=== PATIENT | male | born 1950 | race Caucasian/White ===

== ENCOUNTER → 2017-02-27 | Outpatient (CLI) | payer OTHER, MEDICARE | LOC: SBRMNEURO 23:00 | PROVIDERS: ATTEND Physician Assistant Medical | DX: G47.33 Obstructive sleep apnea (adult) (pediatric) (principal); G47.52 REM sleep behavior disorder ==

== ENCOUNTER 2017-09-29 08:21 | Inpatient (IN) | payer OTHER, MEDICARE ==
--- NOTE | 2017-09-29 07:03 | PDHPUP ---
History & Physical Update H&P update statement: This history and physical update is based on an assessment of the patient which was completed after admission or registration (within 24 hours), but prior to the surgery/procedure. H&P update: H&P reviewed & patient examined, no change in patient's condition since H&P completed
[~2017-09-29 08:21] MED LIST: ROPIVACAINE 0.2% 80 MG, EPINEPHrine 0.2 MG, KETOROLAC TROMETHAMINE 30 MG in SYRINGE 0 ML IU ONE; TRANEXAMIC ACID 3,000 MG in NS (SYRINGE) 50 ML IRR ONE; TRANEXAMIC ACID 3,000 MG/50 ML BAG IRR ONE
[2017-09-29] MEDS ORDERED: LIDOCAINE 1% 2 ML INJ ID PRN (08:40)
[2017-09-29] MEDS ORDERED: FAMOTIDINE 20 MG TAB PO ONE (08:40)
[2017-09-29] MEDS ORDERED: DEXAMETHASONE 4 MG/ML VIAL IVP ONE (08:40)
[2017-09-29] MEDS ORDERED: VANCOMYCIN PHARMACY TO DOSE MISC ONE (08:40)
[2017-09-29] MEDS ORDERED: ACETAMINOPHEN 325 MG TAB PO ONE (08:40)
[2017-09-29] MEDS ORDERED: LR 1,000 ML IV ONE (08:40)
[2017-09-29] MEDS ORDERED: VANCOMYCIN 1.5 GM in NS 250 ML IV ONE (09:30)
--- NOTE | 2017-09-29 09:38 | PDANEPAE ---
ANE History of Present Illness here for L MARTIN ANE Past Medical History - Cardiovascular History Hx Hypertension: No Hx Arrhythmias: Yes Hx Chest Pain: No Hx Coronary Artery / Peripheral Vascular Disease: No Hx CHF / Valvular Disease: No Hx Palpitations: No Cardiovascular History Comment: A-Fib. LAE - Pulmonary History Hx COPD: No Hx Asthma/Reactive Airway Disease: No Hx Recent Upper Respiratory Infection: No Hx Oxygen in Use at Home: No Hx Sleep Apnea: Yes Sleep Apnea Screening Result - Last Documented: Positive Pulmonary History Comment: [facility]LEY uses C-PAP - Neurologic History Hx Cerebrovascular Accident: No Hx Seizures: No Hx Dementia: No - Endocrine History Hx Diabetes: No - Renal History Hx Renal Disorders: Yes Renal History Comment: prostate ca - Liver History Hx Hepatic Disorders: No - Neurological & Psychiatric Hx Hx Neurological and Psychiatric Disorders: Yes Neurological / Psychiatric History Comment: depression - Cancer History Hx Cancer: Yes Cancer History Comment: prostate ca - GI History Hx Gastrointestinal Disorders: No - Other Health History Other Health History: Gout. osteo-arthritis left hip - Chronic Pain History Chronic Pain: No - Surgical History Prior Surgeries: prostetectomy 2011. rotator cuff repair 2017 ANE Review of Systems Review of Systems: - Exercise capacity METS (RN): 4 METS ANE Patient History - Allergies Allergies/Adverse Reactions: Penicillins Allergy (Verified 09/04/17 11:35) Swelling/neck,face,throat - Home Medications Home Medications: Allopurinol [Allopurinol 300 MG (RX)] 300 mg PO DAILY 09/04/17 [Last Taken 09/22] Apixaban [Eliquis] 5 mg PO BID 09/04/17 [Last Taken 09/25/17] Ascorbic Acid [Vitamin C 500 mg (*)] 1,000 mg PO BID 09/04/17 [Last Taken ] Cholecalciferol Vit D3 [Vitamin D3 (*)] 2,000 units PO DAILY 09/04/17 [Last Taken 09/22/17] FLUoxetine [Prozac 20 MG (*)] 60 mg PO DAILY 09/04/17 [Last Taken 09/29/17 06:30 ] Fluticasone Nasal [Flonase Nasal Vernalis (RX)] 1 sprays NASAL DAILY PRN 09/04/17 [ Last Taken 07/31/17] [place]-3 Fatty Acids [Fish Oil 1000 mg (*)] 1,000 mg PO BID 09/04/17 [Last Taken 09/22/17] Rosuvastatin Calcium [Crestor 20mg (*)] 20 mg PO DAILY 09/04/17 [Last Taken 08/17] Tadalafil [Cialis] 2.5 mg PO DAILY 09/04/17 [Last Taken 09/08/17] Colchicine PRN 09/29/17 [Last Taken 08/14/17] - NPO status NPO Since - Liquids (Date): 09/28/17 NPO Since - Liquids (Time): 21:30 NPO Since - Solids (Date): 09/28/17 NPO Since - Solids (Time): 21:30 - Anes Hx Anes Hx: no prior problems - Smoking Hx Smoking Status: Never smoked - Alcohol Use Alcohol Use: Rarely - Family Anes Hx Family Anes Hx: none Family Hx Anesthesia Complications: none ANE Labs/Vital Signs - Vital Signs Blood Pressure: 147/86 Heart Rate: 65 Respiratory Rate: 16 O2 Sat (%): 92 Height: 177.8 cm Weight: 102.058 kg ANE Physical Exam - Airway Neck exam: FROM Mallampati Score: Class 2 Mouth exam: normal dental/mouth exam - Pulmonary Pulmonary: no respiratory distress, clear to auscultation - Cardiovascular Cardiovascular: regular rate and rhythym, no murmur, rub, or gallop - ASA Status ASA Status: III ANE Anesthesia Plan Anesthesia Plan: GA with mask, spinal Total IV Anesthesia: Yes
[2017-09-29] MEDS ORDERED: MIDAZOLAM 2 MG/2 ML VIAL IVP ONE (09:42)
[2017-09-29] MEDS ORDERED: PROPOFOL/EMULSION 500 MG/50 ML BOTTLE IV ONE ×2 (09:46→10:45)
[2017-09-29] MEDS ORDERED: MAGNESIUM HYDROXIDE 30 ML UDCUP PO PRN (11:16)
[2017-09-29] MEDS ORDERED: DIPHENOXYLATE/ATROPINE LOMOTIL 1 TAB PO PRN (11:16)
[2017-09-29] MEDS ORDERED: METOCLOPRAMIDE 10 MG/2 ML VIAL IVP PRN (11:16)
[2017-09-29] MEDS ORDERED: ONDANSETRON 4 MG/2 ML VIAL IVP PRN ×2 (11:16→11:23)
[2017-09-29] MEDS ORDERED: PROMETHAZINE HCL 25 MG SUPPR PR PRN (11:16)
[2017-09-29] MEDS ORDERED: NON-FORMULARY NEW DRUG (Fluticasone Nasal [Flonase Nasal Spray] 1 SPRAYS) NASAL PRN (11:16)
[2017-09-29] MEDS ORDERED: LACTULOSE 20 GM/30 ML UDCUP PO PRN (11:16)
[2017-09-29] MEDS ORDERED: BISACODYL 10 MG SUPP PR PRN (11:16)
[2017-09-29] MEDS ORDERED: diphenhydrAMINE 25 MG CAP PO PRN (11:16)
[2017-09-29] MEDS ORDERED: POLYETHYLENE GLYCOL 3350 17 GM PKT PO PRN (11:16)
[2017-09-29] MEDS ORDERED: PROMETHAZINE HCL 25 MG/ML INJ IVP PRN (11:16)
[2017-09-29] MEDS ORDERED: TEMAZEPAM 15 MG CAP PO PRN (11:16)
[2017-09-29] MEDS ORDERED: ONDANSETRON DISINTEGRATING 4 MG TAB PO PRN (11:16)
--- NOTE | 2017-09-29 11:20 | POSTOPPROG ---
Post Op Note Date of Operation: 09/29/17 Surgeon: Gurdeep Guzmán Pipeline Superintendent Division: [facility] Anesthesiologist: dr. mitchell Anesthesia: Spinal Pre-op Diagnosis: left hip OA Post-op Diagnosis: same Indication: left hip pain due to OA that failed conservative measures Procedure: L MARTIN ant approach Findings: severe hip OA Inf/Abcess present in the surg proc area at time of surgery?: No EBL: 100-500
[2017-09-29] MEDS ORDERED: OXYCODONE/APAP 5/325 TAB PO PRN (11:23)
[2017-09-29] MEDS ORDERED: fentaNYL 100 MCG/2 ML INJ IVP PRN (11:23)
[2017-09-29] MEDS ORDERED: NALOXONE HCL 0.4 MG/ML INJ IVP PRN (11:23)
[2017-09-29] MEDS ORDERED: HYDROmorphONE/DILAUDID 1 MG/ML INJ IVP PRN (11:23)
[2017-09-29] MEDS ORDERED: ACETAMINOPHEN 500 MG TAB PO PRN (11:23)
[2017-09-29] MEDS ORDERED: HYDROCODONE/APAP 5/325 TAB PO PRN (11:23)
--- NOTE | 2017-09-29 11:24 | POSTANESTH ---
Post Anesthetic Evaluation Cardiovascular Status: Normal, Stable, Similar to Pre-Op Cond Respiratory Status: Normal, Stable, Similar to Pre-op Cond. Level of Consciousness/Mental Status: Can Participate in Eval, Alert and Oriented Pain Control: Adequate, Prn Tx Ordered Nausea/Vomiting Control: Adequate, Prn Tx Ordered Complications Possibly Related to Anesthesia: None Noted
[2017-09-29] MEDS ORDERED: LR 1,000 ML IV SCH (11:30)
[2017-09-29] MEDS ORDERED: FLUTICASONE NASAL 120 SPRAYS/16 GM MDI EACHNARE PRN (11:57)
[2017-09-29 12:52] VITALS: RESP 16
[2017-09-29] MEDS: ACETAMINOPHEN 325 MG TAB PO SCH ×2 (13:46→19:15)
[2017-09-29] MEDS ORDERED: ceFAZolin 2 GM/SWFI 2 GM/20 ML SYR IVP SCH (14:00)
[2017-09-29] MEDS ORDERED: ceFAZolin 2 GM/DEXTROSE 100 ML IV SCH (14:00)
--- NOTE | 2017-09-29 15:17 | PDMN ---
Medical Necessity Medical necessity: Pt meets IP criteria per MD; admit for L MARTIN (cpt 34274); [facility] IP only surgery; hx AFIB on AC & HOLLEY; per H&P & order 09/29/17
[2017-09-29] MEDS: oxyCODONE IR 5 MG TAB PO PRN ×2 (16:43→20:14)
[2017-09-29] MEDS: SENNOSIDES/DOCUSATE SODIUM TAB PO SCH (20:14)
[2017-09-29] MEDS: FAMOTIDINE 20 MG TAB PO SCH (20:14)
[2017-09-29] MEDS: CYCLOBENZAPRINE 10 MG TAB PO PRN (21:14)
[2017-09-29] MEDS ORDERED: VANCOMYCIN 1.5 GM in NS 250 ML IV SCH (22:00)
[2017-09-30] MEDS: oxyCODONE IR 5 MG TAB PO PRN ×4 (00:04→11:45)
[2017-09-30] MEDS: ACETAMINOPHEN 325 MG TAB PO SCH ×3 (00:04→11:55)
--- NOTE | 2017-09-30 01:20 | GOP ---
[f rep st] OPERATIVE REPORT DATE OF OPERATION: 09/29/2017 SURGEON: Billie Strong MD SPOOL TENDER: Elaine Strong PA-C ANESTHESIA: Spinal. PREOPERATIVE DIAGNOSIS: Left hip osteoarthritis. POSTOPERATIVE DIAGNOSIS: Left hip osteoarthritis. PROCEDURE PERFORMED: Left total hip arthroplasty with x-ray. FINDINGS: ESTIMATED BLOOD LOSS: 30 cc. INDICATIONS: The patient has progressively worsening arthritis of the hip which has failed medical m anagement. The patient understands the treatment options including continued non-operative care and has selected surgical intervention. The patient has decided to undergo total hip arthroplasty via th e direct anterior approach, understanding the risks of the procedure including, but not limited to, n eurovascular injury, infection, persistent pain, component wear and loosening, deep venous thrombosis , pulmonary embolism, limb length inequality, hip instability (including dislocation), and intra-oper ative fractures. DESCRIPTION OF PROCEDURE: After proper identification of the patient including verification and dalila ing the surgical site, the patient was brought to the operating room and placed in the supine positio n. All bony prominences were well padded. Anesthesia was induced without complication and intraveno us prophylactic antibiotics were administered prior to skin incision. The operative leg was placed in the Trumpf Arch table extension and the well leg in a [place]in leg ho lder. The patient was prepped and draped in the usual sterile fashion. The C-arm was draped for int ra-operative fluoroscopy to check acetabular position, femoral component position including leg lengt h and femoral offset. Attention was then drawn to surgical exposure of the hip. An incision was made with a #10 Bard Avinash r blade starting 3 cm lateral and 3 cm distal to the anterior superior iliac spine measuring 8-10 cm and coursing distally toward the greater trochanter. The skin and subcutaneous tissues were divided sharply down to the fascia uriel. The fascia uriel was incised in line with the skin incision exposing the underlying tensor fascia uriel muscle. The muscle was bluntly elevated from the fascia and the f irst extracapsular Cobra retractor was placed laterally at the junction of the superior femoral neck and greater trochanter. The lateral femoral circumflex vessels were identified, cauterized, and divi ded with the Aquamantys bipolar cautery. The deep investing fascia of the TFL was divided to allow p haley mobilization of the muscle preventing damage during the retraction. The reflected head of the rectus femoris muscle was elevated off the anterior hip capsule and a medial Cobra retractor was plac ed just proximal to the lesser trochanter. The anterior capsulotomy was made sharply from the superolateral acetabulum to the saddle junction of the superior femoral neck and greater trochanter, then coursing inferomedial towards the lesser troc hanter. The retractors were then placed in the intracapsular position for femoral neck osteotomy. C orresponding to pre-operative templating, the osteotomy was made with the oscillating saw carefully p rotecting the greater trochanter and soft tissues. The femoral head was removed from the acetabulum with a corkscrew and confirmed to be severely arthritic with exposed bone, deformity and osteophytes. Similar findings were confirmed in the acetabulum. The Arch table extension was then placed in 40 degrees external rotation. Attention was then drawn to the acetabular preparation. After placement of the anterior and posterio r Cobra retractors outside the labrum and intracapsular, the circumferential labrum was removed sharp ly. The foveal contents were then removed and hemostasis obtained with cautery. The first reamer selected was sized using the removed femoral head. Reaming began with medialization and then commenced in 2 mm increments at 45 degrees of abduction and 15 degrees of anteversion using fluoroscopic navigation. Reaming ceased 1 mm less than the definitive acetabular component and anne-marie esponded to the pre-operative templating. The final acetabular component was inserted using fluorosc opy to achieve proper orientation yielding excellent purchase and stability in the acetabulum. The f inal acetabular liner was then placed and its seating confirmed. Attention was then turned to the femur. The Arch table extension was placed in extension and adducti on, delivering the osteotomized femoral neck into the wound. A 2-pronged femoral elevator was placed at the calcar and another at the tip of the greater trochanter. The posterolateral capsule was rele ased with cautery allowing mobilization of the femur lateral and anterior for preparation. The exter nal rotators were visualized and preserved. A curette and rongeur were used to open the starting poi nt for broaching. Serial broaching started with the #0 broach and ended with the broach that exhibit ed excellent fit in the proximal femur. A change in pitch during mallet strikes was accompanied by t he inability to advance the broach any further. The trial reduction was performed and fluoroscopic n avigation was utilized to check limb length. Adjustments were made to equalize limb length according ly. After the final trials were accepted they were removed and the wound was copiously lavaged. The femo ral component was seated to the same depth as the final broach and the femoral head was impacted onto the clean trunnion. The hip was then reduced for the final time and once more fluoroscopy was used to check that limb length equality was achieved. The wound was irrigated and closed in layers, the fascia uriel with 2-0 Quill, the subcutaneous tissue with 2-0 Quill, and the skin with Dermabond. Sterile dressings were applied. Final sharps and spon ge counts were accurate. The patient was then transferred to a hospital bed and brought to the [facility] room in stable condition. IMPLANTS: Accolade II, size 5 at 127. Acetabular component is a Trident II, 58 mm. The liner is a Trident X3, 36 mm. The head is a Biolox Delta, 36 mm +0. /[id number]/MODL
[2017-09-30 07:44] VITALS: BP 124/64; PULSE 67; TEMP 98.2; O2SAT 91
[2017-09-30] MEDS: CYCLOBENZAPRINE 10 MG TAB PO PRN (07:55)
[2017-09-30] MEDS: SENNOSIDES/DOCUSATE SODIUM TAB PO SCH (08:48)
[2017-09-30] MEDS: FAMOTIDINE 20 MG TAB PO SCH (08:51)
[2017-09-30] MEDS ORDERED: ROSUVASTATIN CALCIUM 20 MG TAB PO SCH (09:00)
[2017-09-30] MEDS ORDERED: APIXABAN 5 MG TAB PO SCH (09:00)
[2017-09-30] MEDS ORDERED: Tadalafil [Cialis] 2.5 MG PO SCH (09:00)
[2017-09-30] MEDS ORDERED: FLUoxetine 20 MG CAP PO SCH (09:00)
--- NOTE | 2017-09-30 09:58 | SOAPPROG ---
SOAP Progress Note Assessment/Plan: Assessment: Patient is doing well POD 1 s/p L MARTIN pain is well controlled on oral pain meds anemia: level is expected initially postop. asymptomatic VTE ppx: recommend resuming eliquis. cont TOMA grace and SCDs D/c planning: d/c to home today, pending release from PT Plan: 09/30/17 09:57 Subjective: Oswaldo is doing well today, denies SOB, chest pain and N/V. Objective: Vital Signs Temp Pulse Resp BP Pulse Ox 36.8 C 67 16 124/64 H 91 L 09/30/17 07:43 09/30/17 07:43 09/30/17 07:43 09/30/17 07:43 09/30/17 07:43 Laboratory Results 09/30/17 04:45 09/29/17 09/30/17 10/01/17 05:59 05:59 05:59 Intake Total 3665 Output Total 600 300 Balance 3065 -300 LLE; incision dressing is clean and dry, NVi, +pf/df ICD10 Worksheet Patient Problems: Problems Problem Status Onset Avascular necrosis of bone of left hip Acute Primary localized osteoarthritis of left hip Acute
--- NOTE | 2017-10-04 21:00 | GDS ---
[f rep st] DISCHARGE SUMMARY ADMISSION DIAGNOSIS: Left hip osteoarthritis. DISCHARGE DIAGNOSIS: Left hip osteoarthritis. PROCEDURE: Left total hip arthroplasty. VTE PROPHYLAXIS: Recommend patient resume Eliquis. BRIEF DESCRIPTION OF HOSPITAL STAY: Patient was admitted for an elective joint arthroplasty. The pa tient tolerated the procedure well and has passed physical therapy. The patient was given appropriat e antibiotic prophylaxis and venous thromboembolism prophylaxis. The patient's pain was well control led on oral pain medication, patient was holding down food, and had urinated. Decision was made to d ischarge the patient. The patient was given post-operative prescriptions pre-operatively. PLAN: Follow up as scheduled at Dr. Strong's office October 16 at 9:45 /[id number]/MODL
== END 2017-09-30 12:10 | disposition home or self-care (01) | DRG 470 ==
LOC: F3N 08:21
PROVIDERS: ADMIT Orthopaedic Surgery; ATTEND Orthopaedic Surgery
PROC: 0SRB04A Replacement of Left Hip Joint with Ceramic on Polyethylene Synthetic Substitute, Uncemented, Open Approach (ICD-10-PCS; principal; 2017-09-29 10:15)
DX: M16.12 Unilateral primary osteoarthritis, left hip (principal)
CPT/HCPCS: 97110-GP; 97116-GP; 97161-GP; 97165-GO; 97530-GO; 97530-GP; G8978-GP-CH; G8978-GP-CK; G8979-GP-CH; G8979-GP-CI; G8980-GP-CH; G8987-GO-CI; G8988-GO-CI; G8989-GO-CI; J0171; J1100; J1885; J2704; J2795; J3370